=== PATIENT | male | born 1990 | race Caucasian/White ===

== ENCOUNTER 2017-04-01 02:19 | Emergency (ER) | payer OTHER ==
[2017-04-01 04:10] LABS: BASOPHIL % 0.4 % (0-2); PLATELET COUNT 201 x10^3mcL (130-400); RED CELL DISTRIBUTION WIDTH 12.5 % (11.5-14.5)
[2017-04-01 04:17] LABS: UA SPECIFIC GRAVITY >=1.030 (1.005-1.035); microscopic required? YES; urine erythrocyte NEGATIVE (NEGATIVE)
[2017-04-01 04:18] LABS: CALCIUM 8.4 mg/dL (8.5-10.1); CARBON DIOXIDE 29.1 mmol/L (21-32); CHLORIDE SERUM 106 mmol/L (98-107); GFR1 > 60 mL/min; GLUCOSE SERUM 121 mg/dL (74-106); POTASSIUM SERUM 3.3 mmol/L (3.5-5.1); SODIUM SERUM 146 mmol/L (136-145)
[2017-04-01 04:23] LABS: ALKALINE PHOSPHATASE 91 U/L (46-116); ALT/SGPT 23 U/L (16-63); AMYLASE 43 U/L (25-115); AST/SGOT 20 U/L (15-37); BILIRUBIN TOTAL 0.23 mg/dL (0.20-1.00); LIPASE 116 IU/L (73-393); TOTAL PROTEIN, SERUM 7.7 g/dL (6.4-8.2)
[2017-04-01 04:24] LABS: ALBUMIN 3.1 g/dL (3.4-5.0)
[2017-04-01 05:47] VITALS: BP 129/93
== END 2017-04-01 05:47 | disposition home or self-care (01) ==
LOC: ED 02:19
PROVIDERS: Emergency Medicine
DX: K80.70 Calculus of gallbladder and bile duct without cholecystitis without obstruction (principal)
CPT/HCPCS: 36415; J1170; J1885; Q0092; Q0162

== ENCOUNTER 2018-07-08 02:05 | Emergency (ER) | payer OTHER ==
[~2018-07-08] VITALS: Ht 165.1 cm; Wt 88.0 kg
[2018-07-08 03:41] VITALS: BP 145/103
[2018-07-08 04:06] LABS: BASOPHIL % 0.7 % (0-2); PLATELET COUNT 224 x10^3mcL (130-400); RED CELL DISTRIBUTION WIDTH 13.6 % (11.5-14.5)
[2018-07-08 04:07] LABS: CALCIUM 8.6 mg/dL (8.5-10.1); CARBON DIOXIDE 30.6 mmol/L (21-32); CHLORIDE SERUM 106 mmol/L (98-107); GFR1 > 60 mL/min; GLUCOSE SERUM 82 mg/dL (74-106); POTASSIUM SERUM 3.6 mmol/L (3.5-5.1); SODIUM SERUM 141 mmol/L (136-145)
[2018-07-08 04:22] LABS: ALBUMIN 3.7 g/dL (3.4-5.0); ALKALINE PHOSPHATASE 130 U/L (46-116); ALT/SGPT 27 U/L (16-63); AST/SGOT 21 U/L (15-37); BILIRUBIN TOTAL 0.2 mg/dL (0.20-1.00); FREE T4 0.83 ng/dL (0.76-1.46); TOTAL PROTEIN, SERUM 7.6 g/dL (6.4-8.2)
== END 2018-07-08 03:41 | disposition left against medical advice (07) ==
LOC: ED 02:05
PROVIDERS: Emergency Medicine
DX: G25.71 Drug induced akathisia (principal); G24.8 Other dystonia
CPT/HCPCS: 83880; 84439; G0480; J2060

== ENCOUNTER 2019-03-05 10:12 | Emergency (ER) | payer OTHER ==
[~2019-03-05] VITALS: Ht 165.1 cm; Wt 85.7 kg
[2019-03-05 10:18] VITALS: Ht 165.1 cm; Wt 85.7 kg
[2019-03-05 11:09] LABS: CALCIUM 8.5 mg/dL (8.5-10.1); CARBON DIOXIDE 25.6 mmol/L (21-32); CHLORIDE SERUM 101 mmol/L (98-107); GFR1 > 60 mL/min; GLUCOSE SERUM 106 mg/dL (74-106); PLATELET COUNT 212 x10^3mcL (130-400); POTASSIUM SERUM 3.5 mmol/L (3.5-5.1); RED CELL DISTRIBUTION WIDTH 13.9 % (11.5-14.5); SODIUM SERUM 137 mmol/L (136-145)
[2019-03-05 11:23] LABS: ALKALINE PHOSPHATASE 92 U/L (46-116); ALT/SGPT 35 U/L (16-63); AST/SGOT 38 U/L (15-37); BILIRUBIN TOTAL 0.62 mg/dL (0.20-1.00); LIPASE 92 IU/L (73-393); TOTAL PROTEIN, SERUM 8.1 g/dL (6.4-8.2)
[2019-03-05 11:43] LABS: BASOPHIL % 0 % (0-2)
[2019-03-05 13:09] LABS: UA SPECIFIC GRAVITY 1.025 (1.005-1.035); microscopic required? YES; urine erythrocyte NEGATIVE (NEGATIVE)
[2019-03-05 14:40] VITALS: BP 124/76
[2019-03-06] MEDS ORDERED: PREZCOBIX1 TAB PO (00:37)
[2019-03-06] MEDS ORDERED: DESCOVY 200-251 EACH PO (00:37)
== END 2019-03-05 14:40 | disposition home or self-care (01) ==
LOC: ED 10:12
PROVIDERS: Emergency Medicine
DX: K52.9 Noninfective gastroenteritis and colitis, unspecified (principal); R10.12 Left upper quadrant pain; R11.10 Vomiting, unspecified; R19.7 Diarrhea, unspecified
CPT/HCPCS: 87046; 87046-59; J1885; J2405; J7030

== ENCOUNTER 2019-03-05 21:35 | Inpatient (IN) | payer OTHER ==
[~2019-03-05] VITALS: Ht 165.1 cm; Wt 86.4 kg
[2019-03-05 21:54] VITALS: Ht 165.1 cm; Wt 86.4 kg
--- NOTE | 2019-03-05 22:02 | NUR ---
PT LYING IN BED ON RT SIDE, AAOX4 WITH C/O FEVERS, DIZZINESS, ABD CRAMPING, AND GENERALIZED BODY WEAKNESS SINCE YESTERDAY. PT STATES PAIN WITH URINATION TODAY AND FEVERS UP TO 103.9. PT WAS SEEN HERE EARLIER TODAY WITH DIAGNOSIS OF AN INTESTINAL VIRUS.
[2019-03-05 23:14] LABS: microscopic required? YES; urine erythrocyte NEGATIVE (NEGATIVE)
[2019-03-05 23:19] LABS: BASOPHIL % 0 % (0-2); PLATELET COUNT 168 x10^3mcL (130-400); RED CELL DISTRIBUTION WIDTH 13.9 % (11.5-14.5)
[2019-03-05 23:22] LABS: ALKALINE PHOSPHATASE 73 U/L (46-116); ALT/SGPT 27 U/L (16-63); AST/SGOT 29 U/L (15-37); BILIRUBIN TOTAL 0.57 mg/dL (0.20-1.00); CALCIUM 7.6 mg/dL (8.5-10.1); CARBON DIOXIDE 23.2 mmol/L (21-32); CHLORIDE SERUM 102 mmol/L (98-107); GFR1 > 60 mL/min; GLUCOSE SERUM 110 mg/dL (74-106); SODIUM SERUM 138 mmol/L (136-145); TOTAL PROTEIN, SERUM 6.8 g/dL (6.4-8.2)
[2019-03-05 23:23] LABS: ALBUMIN 3.3 g/dL (3.4-5.0)
[2019-03-05 23:29] LABS: POTASSIUM SERUM 2.9 mmol/L (3.5-5.1)
--- NOTE | 2019-03-05 23:55 | NUR ---
PT UP TO RESTROOM
[2019-03-06] MEDS ORDERED: DESCOVY 200-251 EACH PO (00:37)
[2019-03-06] MEDS ORDERED: PREZCOBIX1 TAB PO (00:37)
--- NOTE | 2019-03-06 00:59 | NUR ---
REPORT GIVEN TO PUSHPA BRANNON.
--- NOTE | 2019-03-06 01:30 | NUR ---
PT RECEIVED FROM ED VIA GURNEY ACCOMPAINED BY NURSE. PT A/O X4. PT DENIES ANY BARLOW, DIZZINESS AT THIS TIME. BREATHING IS EVEN AND UNLABORED ON RA. PT LUNG SOUNDS ARE CLEAR BILATERALLY. PT ON TELE #9 WITH NSR HR 97. PT DENIES CHEST PAIN OR PRESSURE. ABD SOFT AND ROUND, ACTIVE BOWEL SOUNDS. PT C/O OF DIARRHEA X2. PT DENIES ABD PAIN, N/V. PT NO EDEMA NOTED, PULSES PALPABLE. PT IS AMBULATORY. NO RESP DISTRESS NOTED AT THIS TIME. PT DENIES ANY PAIN AT THIS TIME. PT SKIN IS INTACT, WARM AND DRY. PT IV ON RAC INFUSING WELL. WILL CONTINUE TO MONITOR.
[2019-03-06 01:38] VITALS: BP 134/84
[2019-03-06 02:14] LABS: T3 TOTAL 0.79 ng/mL
[2019-03-06 02:16] LABS: CHOLESTEROL/HDL RATIO 3.3; MAGNESIUM 1.5 mg/dL (1.8-2.4); PHOSPHOROUS 1.9 mg/dL (2.5-4.9)
[2019-03-06 02:27] LABS: FREE T4 0.92 ng/dL (0.76-1.46); FREE THYROXINE INDEX 1.8 ug/dL (1.4-4.5); T4(THYROXINE) 4.9 ug/dL (4.7-13.3)
--- NOTE | 2019-03-06 03:30 | NUR ---
PT RESTING, BREATHING EVEN AND UNLABORED WITH NO SOB NOTED. IV PATENT, INFUSING WELL. NO SIGNS OF DISTRESS NOTED. CALL BUTTON WITHIN REACH. WILL CONTINUE TO MONITOR.
[2019-03-06 05:38] VITALS: BP 150/85
[2019-03-06 06:16] LABS: BASOPHIL % 0.2 % (0-2); PLATELET COUNT 155 x10^3mcL (130-400); RED CELL DISTRIBUTION WIDTH 13.8 % (11.5-14.5)
--- NOTE | 2019-03-06 06:46 | NUR ---
PT SLEPT MOST OF THE NIGHT WITH NO SIGNS OF DISTRESS. BREATHING EVEN AND UNLABORED ON RA. IV PATENT, INFUSING WELL WITH NO SIGNS OF INFILTRATION NOTED. CALL BUTTON WITHIN REACH. WILL CONTINUE TO MONITOR AND ENDORSE CARE TO DAY SHIFT RN.
[2019-03-06 07:05] LABS: CALCIUM 8.1 mg/dL (8.5-10.1); CARBON DIOXIDE 21.9 mmol/L (21-32); CHLORIDE SERUM 106 mmol/L (98-107); CREATININE SERUM 0.8 mg/dL (0.7-1.3); GFR1 > 60 mL/min; GLUCOSE SERUM 96 mg/dL (74-106); MAGNESIUM 2.3 mg/dL (1.8-2.4); PHOSPHOROUS 2.2 mg/dL (2.5-4.9); POTASSIUM SERUM 3.4 mmol/L (3.5-5.1); SODIUM SERUM 140 mmol/L (136-145)
--- NOTE | 2019-03-06 07:35 | NUR ---
PT AWAKE, BREATHING EVEN AND UNLABORED. NO SIGNS OF DISTRESS NOTED. ENDORSED CARE TO DAY SHIFT RN, ALL QUESTIONS ADDRESSED.
--- NOTE | 2019-03-06 07:58 | NUR ---
RECEIVED PATIENT FROM [facility]. PATIENT SEATED IN BED EATING BREAKFAST TRAY. BOYFRIEND AT BEDSIDE. INFORMED PATIENT AND BOYFRIEND TO BRING HOME MEDICATION BOTTLES TO HOSPITAL, PATIENT VERBALIZES UNDERSTANDING. THEY ARE AWARE THAT THE DOCTORS WILL BE IN TO SPEAK WITH THEM THIS AM. CALL LIGHT IN REACH AT THIS TIME.
--- NOTE | 2019-03-06 10:10 | NUR ---
PATIENT WAS SEEN BY DR LIU & DR KANG. PATIENT UPDATED TO PLAN OF CARE. STATES STOOL CULTURE NEEDED. HAT PLACED IN TOILET, PATIENT MADE AWARE. WILL REINFORCE NEED FOR STOOL SAMPLE DUE TO PATIENT SLEEPING. CALL LIGHT IN REACH AT THIS TIME.
[2019-03-06 10:17] VITALS: BP 149/81
[2019-03-06 14:12] LABS: AMPHETAMINE QUAL UR POSITIVE (See below)
[2019-03-06 14:18] VITALS: BP 120/76
--- NOTE | 2019-03-06 14:20 | NUR ---
PATIENTS PARTNER SILVIA BROUGHT 2X HOME MEDICATION BOTTLES TO ROOM. PATIENT STATES THAT HE HAS NO MORE DOSAGES AND THAT TO GET A REFILL HE HAS TO GO TO HIS DOCTOR. BOTTLES TAKEN DOWN TO PHARMACY FOR VERIFICATION AND BOTTLES RETURNED TO PARTNER SILVIA. PATIENTS PARTNER EXPRESSED CONCERN THAT PATIENT MAY HAVE MENINGITIS AND WOULD LIKE PATIENT CARE TIME TO TEST CSF. WILL NOTIFY DR LIU OF REQUEST. PATIENT SLEEPING AT THIS TIME, CALL LIGHT IN REACH.
--- NOTE | 2019-03-06 15:46 | NUR ---
DR LIU IN TO SPEAK WITH PATIENT AND PATIENTs PARTNER. DR LIU REASSURED PATIENT THAT THERE IS NO NEED TO TEST FOR MENINGITIS. ALL QUESTIONS AND CONCERNS ADDRESSED AT THIS TIME. NEW STOOL CULTURE SPECIMEN COLLECTED FOR LAB. PATIENT IN BED RESTING AT THIS TIME, CALL LIGHT IN REACH.
[2019-03-06 17:33] VITALS: BP 138/88
--- NOTE | 2019-03-06 18:21 | NUR ---
PATIENT CONTINUES TO REST IN BED. ASKED FOR ICE WATER. NO COMPLAINTS OF PAIN OR DIZZINESS AT THIS TIME, CONTINUES TO HAVE BOUTS OF DIARRHEA. DR LIU AWARE. WILL ENDORSE TO ONCOMING NURSE. CALL LIGHT IN REACH AT THIS TIME.
--- NOTE | 2019-03-06 19:29 | NUR ---
DR. AGUSTIN MADE AWARE THAT PT WANTS TO LEAVE AMA
--- NOTE | 2019-03-06 19:40 | NUR ---
PT DECIDED TO LEAVE HOSPITAL AMA AT THIS TIME, EXPLAINED TO PATIENT THE RISKS OF LEAVING AMA AND VERBALIZED UNDERSTOOD. DR AGUSTIN MADE AWARE.REMOVED IV LINE WITH CATH INTACT. TELE BOX REMOVED AND RETURNED TO [facility]. PT WALKED AWAY WITH BOYFRIEND AND ACCOMPANY BY [employer] MACHIN[employer] WITH NO SIGNS OF DISTRESS.
== END 2019-03-06 19:42 | disposition left against medical advice (07) | DRG 892 ==
LOC: ED 21:35 → DU 03-06 00:03
PROVIDERS: Emergency Medicine; ADMIT General Practice
DX: A41.9 Sepsis, unspecified organism (principal); B20 Human immunodeficiency virus [HIV] disease; N17.0 Acute kidney failure with tubular necrosis; E87.6 Hypokalemia; K52.9 Noninfective gastroenteritis and colitis, unspecified; F17.210 Nicotine dependence, cigarettes, uncomplicated; Z60.2 Problems related to living alone; E83.51 Hypocalcemia; R80.9 Proteinuria, unspecified; Z53.21 Procedure and treatment not carried out due to patient leaving prior to being seen by health care provider; E83.42 Hypomagnesemia; E83.39 Other disorders of phosphorus metabolism; Z68.31 Body mass index [BMI] 31.0-31.9, adult
CPT/HCPCS: 83880; 84439; 87046; 87046-59; G0378; J2543; J3475; J3480; J7030; Q0092

== ENCOUNTER 2019-09-12 11:35 | Emergency (ER) | payer OTHER ==
[~2019-09-12] VITALS: Ht 165.1 cm; Wt 87.5 kg
[~2019-09-12 11:35] MED LIST: DESCOVY 200-251 EACH PO; PREZCOBIX1 TAB PO
[2019-09-12 11:47] VITALS: Ht 165.1 cm; Wt 87.5 kg
[2019-09-12 14:40] VITALS: BP 121/83
== END 2019-09-12 14:40 | disposition home or self-care (01) ==
LOC: ED 11:35
DX: R50.9 Fever, unspecified (principal); R05 Cough; R07.89 Other chest pain

== ENCOUNTER 2020-06-11 12:38 | Emergency (ER) | payer OTHER ==
[~2020-06-11] VITALS: Ht 165.1 cm; Wt 89.4 kg
[2020-06-11 12:57] VITALS: Ht 165.1 cm; Wt 89.4 kg
[2020-06-11 13:32] VITALS: BP 141/94
== END 2020-06-11 13:32 | disposition home or self-care (01) ==
LOC: ED 12:38
DX: L08.9 Local infection of the skin and subcutaneous tissue, unspecified (principal); M79.674 Pain in right toe(s); L53.9 Erythematous condition, unspecified